=== PATIENT | female | born 1970 | race Caucasian/White ===

== ENCOUNTER → 2020-10-16 | Day surgery (SDC) | payer OTHER ==
[~2020-10-16] MED LIST: CYMBALTA60 MG PO; FLEXERIL 10 MG10 MG PO; HYDROCHLOROTHIA25 MG PO; HYDROCHLOROTHIA50 MG PO; HYDROXYZINE HCL25 MG PO; IBUPROFEN600 MG PO; LIPITOR10 MG PO; LISINOPRIL20 MG PO; MEDROL4 MG PO; METHIMAZOLE5 MG PO; METHLMAZOLE PO; NEURONTIN300 MG PO; NORCO 5-325 TA1 EACH PO; PERCOCET 5/325 T1 EA PO; PROTONIX40 MG PO; SUBOXONE 8 MG SL; ULTRAM50 MG PO
== END | disposition home or self-care (01) ==
LOC: OR 08:06
DX: Z12.11 Encounter for screening for malignant neoplasm of colon (principal); K57.30 Diverticulosis of large intestine without perforation or abscess without bleeding; K64.0 First degree hemorrhoids; K31.9 Disease of stomach and duodenum, unspecified; K29.71 Gastritis, unspecified, with bleeding; K25.4 Chronic or unspecified gastric ulcer with hemorrhage; K29.80 Duodenitis without bleeding; K21.00 Gastro-esophageal reflux disease with esophagitis, without bleeding; K44.9 Diaphragmatic hernia without obstruction or gangrene; I10 Essential (primary) hypertension; E78.5 Hyperlipidemia, unspecified; E05.90 Thyrotoxicosis, unspecified without thyrotoxic crisis or storm; F17.290 Nicotine dependence, other tobacco product, uncomplicated; E66.9 Obesity, unspecified; Z68.33 Body mass index [BMI] 33.0-33.9, adult; Z79.899 Other long term (current) drug therapy
CPT/HCPCS: 43239; G0121; J2250; J2704; J3010; J7040

== ENCOUNTER → 2020-11-07 | Outpatient (CLI) | payer OTHER ==
[2020-11-07 13:07] LABS: BUN/CREATININE RATIO 18 (0-10)
[2020-11-07 13:08] LABS: HEMOGLOBIN 12.5 gm/dl (12.3-15.3); WHITE BLOOD COUNT 5.5 K/UL (4.5-11.0)
== END ==
LOC: LAB 11:37
PROVIDERS: Nurse Practitioner Family
DX: I10 Essential (primary) hypertension (principal); E78.5 Hyperlipidemia, unspecified; E05.90 Thyrotoxicosis, unspecified without thyrotoxic crisis or storm
CPT/HCPCS: 36415; 80053; 80061; 81001; 84439; 84443; 85025

== ENCOUNTER 2020-12-04 14:22 | Emergency (ER) | payer OTHER ==
[2020-12-04 15:28] LABS: HEMOGLOBIN 13.1 gm/dl (12.3-15.3); RED BLOOD COUNT 4.2 M/UL (4.00-5.10); WHITE BLOOD COUNT 5.8 K/UL (4.5-11.0)
[2020-12-04 15:50] LABS: BUN/CREATININE RATIO 15 (0-10)
== END 2020-12-04 16:40 | disposition home or self-care (01) ==
LOC: ER1 14:22
PROVIDERS: Physician Assistant
DX: R60.0 Localized edema (principal); Z90.710 Acquired absence of both cervix and uterus; Z79.899 Other long term (current) drug therapy
CPT/HCPCS: 71045; 80053; 83880; 85025; 99284

== ENCOUNTER → 2020-12-06 | Outpatient (CLI) | payer OTHER ==
[2020-12-06 13:59] LABS: HEMOGLOBIN 12.8 gm/dl (12.3-15.3); RED BLOOD COUNT 4.04 M/UL (4.00-5.10)
[2020-12-06 14:00] LABS: WHITE BLOOD COUNT 11.4 K/UL (4.5-11.0)
[2020-12-06 14:22] LABS: BUN/CREATININE RATIO 19 (0-10)
[2020-12-07 09:14] LABS: HBSAG SCREEN Negative (Negative); HEP A AB, IGM Negative (Negative); HEP B CORE AB, IGM Negative (Negative); HEP C VIRUS AB >11.0 (0.0-0.9)
== END ==
LOC: US 13:22
PROVIDERS: Nurse Practitioner Family
DX: E78.5 Hyperlipidemia, unspecified (principal); M79.604 Pain in right leg; M79.605 Pain in left leg; B19.20 Unspecified viral hepatitis C without hepatic coma; R60.0 Localized edema
CPT/HCPCS: 36415; 80053; 80074; 83880; 84436; 84439; 84443; 85025; 85379; 85652; 86140; 93970

== ENCOUNTER → 2021-01-07 | Outpatient (CLI) | payer OTHER ==
[2021-01-07 17:51] LABS: HEMOGLOBIN 14.5 gm/dl (12.3-15.3); RED BLOOD COUNT 4.54 M/UL (4.00-5.10); WHITE BLOOD COUNT 5.4 K/UL (4.5-11.0)
[2021-01-07 18:13] LABS: BUN/CREATININE RATIO 18 (0-10)
[2021-01-09 09:14] LABS: HBSAG SCREEN Negative (Negative); HEP B CORE AB, TOT Negative (Negative)
[2021-01-09 15:14] LABS: ALDOLASE 3.8 U/L (3.3-10.3)
[2021-01-11 19:09] LABS: HCV AB >11.0 (0.0-0.9); HEPATITIS C QUANTITATION HCV Not Detected IU/mL (.)
== END ==
LOC: LAB 16:02
PROVIDERS: Internal Medicine
DX: M33.90 Dermatopolymyositis, unspecified, organ involvement unspecified (principal); R76.8 Other specified abnormal immunological findings in serum; R74.8 Abnormal levels of other serum enzymes; B18.1 Chronic viral hepatitis B without delta-agent; B19.20 Unspecified viral hepatitis C without hepatic coma; Z79.899 Other long term (current) drug therapy
CPT/HCPCS: 36415; 80053; 82085; 82550; 83615; 83874; 84439; 84443; 85025; 85652; 86140; 86704; 86803; 87340

== ENCOUNTER → 2021-01-14 | Outpatient (CLI) | payer OTHER ==
[2021-01-17 18:12] LABS: QUANTIFERON MITOGEN VALUE >10.00 IU/mL (.); QUANTIFERON NIL VALUE 0.02 IU/mL (.); QUANTIFERON TB1 AG VALUE 0.02 IU/mL (.); QUANTIFERON TB2 AG VALUE 0.01 IU/mL (.); QUANTIFERON-TB GOLD PLUS Negative (Negative)
== END ==
LOC: LAB 12:30
PROVIDERS: Internal Medicine
DX: R76.8 Other specified abnormal immunological findings in serum (principal); M33.90 Dermatopolymyositis, unspecified, organ involvement unspecified; R74.8 Abnormal levels of other serum enzymes; Z79.899 Other long term (current) drug therapy
CPT/HCPCS: 36415

== ENCOUNTER → 2021-04-10 | Outpatient (CLI) | payer OTHER ==
[~2021-04-10] MED LIST changes: +ALEVE220 MG PO; +BUPRENORPHINE-1 EACH PO; +FAMOTIDINE20 MG PO; +IMURAN50 MG PO; +NEURONTIN400 MG PO; +PLAQUENIL200 MG PO
[2021-04-10 12:17] LABS: HEMOGLOBIN 13.5 gm/dl (12.3-15.3); RED BLOOD COUNT 4.01 M/UL (4.00-5.10); WHITE BLOOD COUNT 4.8 K/UL (4.5-11.0)
[2021-04-10 12:34] LABS: BUN/CREATININE RATIO 12 (0-10)
== END ==
LOC: OPSV2 10:30 → EDSTATUS 10:30 → OPSV2 10:43
PROVIDERS: Orthopaedic Surgery
DX: Z01.818 Encounter for other preprocedural examination (principal); M17.12 Unilateral primary osteoarthritis, left knee
CPT/HCPCS: 36415; 80048; 85027; 87081; 93005

== ENCOUNTER → 2021-04-23 | Outpatient (CLI) | payer OTHER ==
[~2021-04-23] MED LIST changes: +ADULT LOW DOSE81 MG PO; +ENDOCET 7.5-321 EACH PO
[2021-04-23 13:19] LABS: BUN/CREATININE RATIO 11 (0-10)
== END ==
LOC: RAD 12:00
PROVIDERS: Orthopaedic Surgery
DX: Z01.818 Encounter for other preprocedural examination (principal); R91.1 Solitary pulmonary nodule
CPT/HCPCS: 36415; 71046; 80048; 86850; 86900; 86901

== ENCOUNTER 2021-04-24 07:30 | Day surgery (SDC) | payer OTHER ==
[~2021-04-24] VITALS: Ht 147.3 cm; Wt 78.0 kg
[~2021-04-24 07:30] MED LIST changes: -ADULT LOW DOSE81 MG PO; -ENDOCET 7.5-321 EACH PO
[2021-04-24] MEDS ORDERED: ENDOCET 7.5-321 EACH PO (08:49)
[2021-04-24] MEDS ORDERED: ADULT LOW DOSE81 MG PO (08:49)
== END 2021-04-24 17:51 | disposition home or self-care (01) ==
LOC: OR 07:30 → EDSTATUS 08:30 → M/S 13:14 → OR 17:51
DX: M17.12 Unilateral primary osteoarthritis, left knee (principal); I10 Essential (primary) hypertension; E78.5 Hyperlipidemia, unspecified; E05.90 Thyrotoxicosis, unspecified without thyrotoxic crisis or storm; K21.9 Gastro-esophageal reflux disease without esophagitis; F17.290 Nicotine dependence, other tobacco product, uncomplicated; Z79.899 Other long term (current) drug therapy
CPT/HCPCS: 73560; 97161; 97166; C1713; C1776; J0171; J0690; J1100; J1200; J1885; J2250; J2370; J2704; J2795; J3370; J3475; J7120

== ENCOUNTER → 2021-05-05 | Outpatient (CLI) | payer OTHER ==
[~2021-05-05] MED LIST changes: +ADULT LOW DOSE81 MG PO; +ENDOCET 7.5-321 EACH PO
[2021-05-05 12:08] LABS: HEMOGLOBIN 11.2 gm/dl (12.3-15.3); RED BLOOD COUNT 3.4 M/UL (4.00-5.10); WHITE BLOOD COUNT 7.1 K/UL (4.5-11.0)
[2021-05-05 12:40] LABS: BUN/CREATININE RATIO 15 (0-10)
== END ==
LOC: LAB 11:15
PROVIDERS: Nurse Practitioner Family
DX: R74.8 Abnormal levels of other serum enzymes (principal)
CPT/HCPCS: 36415; 80053; 82550; 83615; 85025; 86140

== ENCOUNTER → 2021-07-07 | Outpatient (CLI) | payer OTHER ==
[2021-07-07 13:07] LABS: HEMOGLOBIN 13.7 gm/dl (12.3-15.3); RED BLOOD COUNT 4.21 M/UL (4.00-5.10); WHITE BLOOD COUNT 6.3 K/UL (4.5-11.0)
[2021-07-08 08:15] LABS: A/G RATIO 1.8 (1.2-2.2); BILIRUBIN, TOTAL 0.2 mg/dL (0.0-1.2); CALCIUM, SERUM 10.4 mg/dL (8.7-10.2); CREATININE, SERUM 0.78 mg/dL (0.57-1.00); GLOBULIN, TOTAL 2.6 g/dL (1.5-4.5); POTASSIUM, SERUM 4.6 mmol/L (3.5-5.2); PROTEIN, TOTAL, SERUM 7.4 g/dL (6.0-8.5)
== END ==
LOC: LAB 12:22
PROVIDERS: Nurse Practitioner Family
DX: M33.90 Dermatopolymyositis, unspecified, organ involvement unspecified (principal)
CPT/HCPCS: 36415; 80053; 80299; 85025; 86140